=== PATIENT | female | born 1935 | race Caucasian/White ===

== ENCOUNTER 2016-09-05 00:27 | Inpatient (IN) | payer MEDICARE, SELFPAY ==
[2016-09-05 01:10] LABS: BASOPHIL 0.4 % (0-2); EOSINOPHIL 0 % (0-7); HCT 34.2 % (37.0-47.0); HGB 12.2 g/dl (12.5-16.0); LYMPHOCYTE 12.2 % (15-48); MCH 32.1 pg (25.0-31.0); MCHC 35.7 g/dL (32.0-36.0); MONOCYTE 6.5 % (0-12); MPV 9.9 fL (6.0-9.5); NEUTROPHIL 80.9 % (41-80); PLT 57 K/uL (150-400); RDW 14.2 % (11.5-14.0); WBC 5.1 K/uL (4.0-10.5)
[2016-09-05 01:21] LABS: INR 1.01 (0.9-1.2); PROTHROMBIN TIME 12.9 SECONDS (11.7-14.0); PTT 39.8 SECONDS (23.2-31.4)
[2016-09-05 01:32] LABS: ALBUMIN 3.5 g/dL (3.4-4.8); BILIRUBIN - TOTAL 0.7 mg/dL (0.1-1.0); CREATININE 0.7 mg/dL (0.5-1.0); GLOBULIN (CALCULATION) 3.6 g/dL (2.2-4.2); POTASSIUM 4.8 mmol/L (3.5-5.1); TOTAL PROTEIN 7.1 g/dL (6.4-8.3)
[2016-09-05 07:48] LABS: BASOPHIL 0.2 % (0-2); EOSINOPHIL 0 % (0-7); HCT 30.8 % (37.0-47.0); HGB 10.9 g/dl (12.5-16.0); LYMPHOCYTE 10.8 % (15-48); MCH 32.2 pg (25.0-31.0); MCHC 35.4 g/dL (32.0-36.0); MCV 90.9 fL (78.0-100.0); MONOCYTE 6.4 % (0-12); MPV 9.6 fL (6.0-9.5); NEUTROPHIL 82.6 % (41-80); RDW 14.1 % (11.5-14.0); WBC 4.1 K/uL (4.0-10.5)
[2016-09-05 08:02] LABS: PLT 48 K/uL (150-400); RBC 3.39 M/uL (4.20-5.40)
[2016-09-05 08:04] LABS: INR 1.08 (0.9-1.2); PROTHROMBIN TIME 13.6 SECONDS (11.7-14.0)
[2016-09-05 08:05] LABS: PTT 30.7 SECONDS (23.2-31.4)
[2016-09-05 08:08] LABS: CKMB 1.22 ng/mL (0.97-4.94); TROPONIN T < 0.010 ng/mL
[2016-09-05 08:10] LABS: ALBUMIN 3.2 g/dL (3.4-4.8); BILIRUBIN - TOTAL 0.7 mg/dL (0.1-1.0); CREATININE 0.7 mg/dL (0.5-1.0); GLOBULIN (CALCULATION) 3.1 g/dL (2.2-4.2); MAGNESIUM 2.13 mg/dL (1.40-2.10); POTASSIUM 4.4 mmol/L (3.5-5.1); TOTAL PROTEIN 6.3 g/dL (6.4-8.3)
[2016-09-05 08:12] LABS: PHOSPHORUS 0.6 mg/dL (2.7-4.5)
[2016-09-05 08:51] LABS: BAND 2 % (0-10); LYMPHOCYTE(M) 10 % (15-48); MONOCYTE(M) 4 % (0-12); NEUTROPHILS(M) 84 % (41-80); NRBC 1; TOTAL CELL COUNT 100
[2016-09-05 08:52] LABS: ACANTHOCYTES (THORN CELLS) 1+; PLATELET ESTIMATE DECREASED; PLATELET MORPHOLOGY NORMAL; POIKILOCYTOSIS SLIGHT
[2016-09-05 10:33] LABS: CKMB 1.18 ng/mL (0.97-4.94); TROPONIN T < 0.010 ng/mL
[2016-09-05 14:23] LABS: CREATININE 0.8 mg/dL (0.5-1.0); POTASSIUM 4.6 mmol/L (3.5-5.1)
[2016-09-05 14:24] LABS: CKMB 1.07 ng/mL (0.97-4.94); TROPONIN T < 0.010 ng/mL
[2016-09-05 19:54] LABS: CREATININE 0.9 mg/dL (0.5-1.0); POTASSIUM 4.7 mmol/L (3.5-5.1)
[2016-09-06 02:00] LABS: CREATININE 0.9 mg/dL (0.5-1.0); POTASSIUM 4.7 mmol/L (3.5-5.1)
[2016-09-06 05:29] LABS: HCT 28.5 % (37.0-47.0); MCH 32.3 pg (25.0-31.0); MCHC 35.1 g/dL (32.0-36.0); MCV 91.9 fL (78.0-100.0); RBC 3.1 M/uL (4.20-5.40); RDW 14.5 % (11.5-14.0); WBC 4.3 K/uL (4.0-10.5)
[2016-09-06 05:48] LABS: BILIRUBIN - TOTAL 0.5 mg/dL (0.1-1.0); CREATININE 0.9 mg/dL (0.5-1.0); GLOBULIN (CALCULATION) 3.1 g/dL (2.2-4.2); MAGNESIUM 2.25 mg/dL (1.40-2.10); PHOSPHORUS 2.2 mg/dL (2.7-4.5); POTASSIUM 4.5 mmol/L (3.5-5.1); TOTAL PROTEIN 6.1 g/dL (6.4-8.3)
[2016-09-06 07:39] LABS: CREATININE 0.9 mg/dL (0.5-1.0); POTASSIUM 4.3 mmol/L (3.5-5.1)
[2016-09-06 09:15] LABS: URINE CREATININE 63.5 mg/dL (29-226)
[2016-09-07 07:12] LABS: HCT 27.6 % (37.0-47.0); HGB 9.7 g/dl (12.5-16.0); MCH 32.1 pg (25.0-31.0); MCHC 35.1 g/dL (32.0-36.0); MCV 91.4 fL (78.0-100.0); MPV 8.9 fL (6.0-9.5); RBC 3.02 M/uL (4.20-5.40); RDW 14.3 % (11.5-14.0); WBC 2.9 K/uL (4.0-10.5)
[2016-09-07 07:51] LABS: CREATININE 0.8 mg/dL (0.5-1.0); POTASSIUM 4.2 mmol/L (3.5-5.1)
[2016-09-08 05:47] LABS: BASOPHIL 0.4 % (0-2); EOSINOPHIL 0 % (0-7); HCT 28.3 % (37.0-47.0); HGB 9.7 g/dl (12.5-16.0); LYMPHOCYTE 13.2 % (15-48); MCH 31.6 pg (25.0-31.0); MCHC 34.3 g/dL (32.0-36.0); MCV 92.2 fL (78.0-100.0); MONOCYTE 11.2 % (0-12); NEUTROPHIL 75.2 % (41-80); RBC 3.07 M/uL (4.20-5.40); RDW 14.5 % (11.5-14.0); WBC 2.5 K/uL (4.0-10.5)
[2016-09-08 05:51] LABS: PLT 43 K/uL (150-400)
[2016-09-08 06:19] LABS: CREATININE 0.8 mg/dL (0.5-1.0); MAGNESIUM 2.21 mg/dL (1.40-2.10); POTASSIUM 4.7 mmol/L (3.5-5.1)
[2016-09-08 07:04] LABS: PHOSPHORUS 0.6 mg/dL (2.7-4.5)
[2016-09-09 06:32] LABS: BASOPHIL 0 % (0-2); EOSINOPHIL 0 % (0-7); HCT 26.2 % (37.0-47.0); HGB 9.1 g/dl (12.5-16.0); LYMPHOCYTE 13.3 % (15-48); MCH 32.2 pg (25.0-31.0); MCHC 34.7 g/dL (32.0-36.0); MCV 92.6 fL (78.0-100.0); MONOCYTE 8.8 % (0-12); MPV 9.7 fL (6.0-9.5); NEUTROPHIL 77.9 % (41-80); RBC 2.83 M/uL (4.20-5.40); RDW 14.8 % (11.5-14.0); WBC 2.4 K/uL (4.0-10.5)
[2016-09-09 06:37] LABS: PLT 31 K/uL (150-400)
[2016-09-09 07:00] LABS: CREATININE 0.9 mg/dL (0.5-1.0); PHOSPHORUS 1.2 mg/dL (2.7-4.5); POTASSIUM 4.9 mmol/L (3.5-5.1)
[2016-09-10 04:51] LABS: BILIRUBIN NEGATIVE (NEGATIVE); BLOOD 1+ Ery/uL (NEGATIVE); CLARITY CLEAR (CLEAR); COLOR YELLOW (YELLOW); GLUCOSE (U) NORMAL (NORMAL); KETONE (U) NEGATIVE (NEGATIVE); LEUKOCYTES NEGATIVE Leu/uL (NEGATIVE); NITRITE NEGATIVE (NEGATIVE); PROTEIN 1+ mg/dL (NEGATIVE); SPECIFIC GRAVITY 1.015 (1.001-1.030); UROBILINOGEN 0.2 mg/dL (0.2-1.0)
[2016-09-10 04:57] LABS: BACTERIA TRACE
[2016-09-10 07:39] LABS: BASOPHIL 0.6 % (0-2); EOSINOPHIL 0 % (0-7); HCT 30.1 % (37.0-47.0); HGB 10.1 g/dl (12.5-16.0); LYMPHOCYTE 13.5 % (15-48); MCH 31.1 pg (25.0-31.0); MCHC 33.6 g/dL (32.0-36.0); MCV 92.6 fL (78.0-100.0); MPV 10.1 fL (6.0-9.5); NEUTROPHIL 79.9 % (41-80); RBC 3.25 M/uL (4.20-5.40); RDW 15.2 % (11.5-14.0)
[2016-09-10 07:41] LABS: PLT 32 K/uL (150-400); WBC 3.3 K/uL (4.0-10.5)
[2016-09-10 08:17] LABS: CREATININE 0.9 mg/dL (0.5-1.0); POTASSIUM 6.2 mmol/L (3.5-5.1)
[2016-09-10 08:19] LABS: MAGNESIUM 2.43 mg/dL (1.40-2.10); PHOSPHORUS 2.8 mg/dL (2.7-4.5)
[2016-09-11 04:19] LABS: CREATININE 1.2 mg/dL (0.5-1.0); POTASSIUM 4.5 mmol/L (3.5-5.1)
== END 2016-09-12 16:20 | disposition hospice, home (50) | DRG 643 ==
LOC: FER 00:27 → FMS 02:50
PROVIDERS: Emergency Medicine Emergency Medical Services; Internal Medicine; Nurse Practitioner; ADMIT Internal Medicine
DX: E22.2 Syndrome of inappropriate secretion of antidiuretic hormone (principal); D61.810 Antineoplastic chemotherapy induced pancytopenia; C79.51 Secondary malignant neoplasm of bone; J96.10 Chronic respiratory failure, unspecified whether with hypoxia or hypercapnia; Z99.81 Dependence on supplemental oxygen; C34.90 Malignant neoplasm of unspecified part of unspecified bronchus or lung; E83.39 Other disorders of phosphorus metabolism; E83.51 Hypocalcemia; J44.9 Chronic obstructive pulmonary disease, unspecified; G89.3 Neoplasm related pain (acute) (chronic); I10 Essential (primary) hypertension; R74.0 Nonspecific elevation of levels of transaminase and lactic acid dehydrogenase [LDH]; D64.9 Anemia, unspecified; H35.30 Unspecified macular degeneration; R53.1 Weakness; T45.1X5A Adverse effect of antineoplastic and immunosuppressive drugs, initial encounter; Z87.891 Personal history of nicotine dependence; Z79.899 Other long term (current) drug therapy; Z88.0 Allergy status to penicillin; Z88.5 Allergy status to narcotic agent
CPT/HCPCS: 36415; 72131; 72170; 72192; 73502; 73590; 76705; 77412; 80048; 80053; 81001; 82550; 82553; 82570; 83735; 83930; 83935; 84100; 84300; 84484; 85025; 85610; 85730; 93005; 94010; 94640; 97110; 97163; 97166; 97530; 97530-GP; 97535; J1170; J1644; J2405